=== PATIENT | male | born 1975 | race Caucasian/White ===

== ENCOUNTER 2023-05-03 11:22 | Emergency (ER) | payer MEDICAID ==
[~2023-05-03] VITALS: Ht 175.3 cm; Wt 87.0 kg
[2023-05-03 11:25] VITALS: BP 172/105; PULSE 104; RESP 16; TEMP 98; O2SAT 97
[2023-05-03] MEDS ORDERED: CLIN300C54 PO (11:39)
[2023-05-03] MEDS ORDERED: HYDR-3965 PO ×2 (11:43→12:13)
== END 2023-05-03 12:19 | disposition home or self-care (01) ==
LOC: ER 11:23
DX: K08.89 Other specified disorders of teeth and supporting structures (principal)
CPT/HCPCS: 99283